=== PATIENT | male | born 1995 | race Caucasian/White ===

== ENCOUNTER 2018-03-21 10:12 | Emergency (ER) | payer OTHER | END 2018-03-21 11:26 | disposition home or self-care (01) | LOC: M ED 10:12 | DX: S92.515A Nondisplaced fracture of proximal phalanx of left lesser toe(s), initial encounter for closed fracture (principal); W22.09XA Striking against other stationary object, initial encounter; Y92.098 Other place in other non-institutional residence as the place of occurrence of the external cause | CPT/HCPCS: 73630 ==